=== PATIENT | male | born 1980 | race Caucasian/White ===

== ENCOUNTER 2016-12-01 01:27 | Emergency (ER) | payer OTHER ==
[~2016-12-01] VITALS: Ht 177.8 cm; Wt 70.0 kg
[~2016-12-01 01:27] MED LIST: FLUO20CA4 PO
[2016-12-01 01:35] VITALS: BP 138/96; PULSE 94; RESP 18; TEMP 98.5; O2SAT 97
[2016-12-01 02:00] LABS: AUTOMATED NEUTROPHIL # 3.4 TH/MM3 (1.8-7.7); BASOPHIL % 0.5 % (0.0-2.0); EOSINOPHIL # 0.1 TH/MM3 (0-0.4); EOSINOPHIL % 1.4 % (0.0-4.0); HEMATOCRIT 40.7 % (39.0-51.0); HEMO FLAGS DIFF FINAL; LYMPH % 34.6 % (9.0-44.0); LYMPHOCYTE # 2.2 TH/MM3 (1.0-4.8); MEAN CELL VOLUME 98.2 FL (80.0-100.0); MEAN CORPUSCULAR HEMOGLOBIN 34.4 PG (27.0-34.0); MEAN CORPUSCULAR HGB CONC 35.1 % (32.0-36.0); MONO % 10.6 % (0.0-8.0); NEUT % 52.9 % (16.0-70.0); PLATELET COUNT 218 TH/MM3 (150-450); RED BLOOD COUNT 4.14 MIL/MM3 (4.50-5.90); RED CELL DISTRIBUTION WIDTH 12.4 % (11.6-17.2); WHITE BLOOD COUNT 6.4 TH/MM3 (4.0-11.0)
[2016-12-01 02:11] LABS: BICARBONATE 23.8 MEQ/L (21.0-32.0); POTASSIUM 3.8 MEQ/L (3.5-5.1)
--- NOTE | 2016-12-01 02:39 | PD ---
HPI Chief Complaint: Psychiatric Symptoms Time Seen by Provider: 02:39 Travel History International Travel<30 days: No Contact w/Intl Traveler<30days: No Traveled to known affect area: No History of Present Illness HPI 36-year-old male is brought to the emergency department under Mackenzie act for psychiatric evaluation. Patient allegedly states that he wants to hurt himself. Patient states that he is "crazy" and needs help. Patient reports heavy alcohol consumption. Denies any other acute medically this time. PFSH Past Medical History Anxiety: Yes Depression: Yes Cancer: No Cardiovascular Problems: No Endocrine: No Genitourinary: No Musculoskeletal: No Neurologic: No Psychiatric: No Reproductive: No Respiratory: No Past Surgical History Abdominal Surgery: No Cardiac Surgery: No Ear Surgery: No Endocrine Surgery: No Eye Surgery: No Genitourinary Surgery: No Gynecologic Surgery: No Oral Surgery: Yes Thoracic Surgery: No Other Surgery: Yes Social History Alcohol Use: Yes Tobacco Use: No Substance Use: Yes (NUMEROUS. SEE EMR ) Allergies-Medications (Allergen,Severity, Reaction): Coded Allergies: Penicillin (Verified Allergy, Severe, Anaphylaxis, 12/01/16) Haldol (Verified Adverse Reaction, Unknown, EPS, 12/01/16) Dystonia Reported Meds & Prescriptions Reported Meds & Active Scripts Active No Active Prescriptions or Reported Medications Review of Systems ROS Limitations: Intoxication Except as stated in HPI: all other systems reviewed are Neg Physical Exam Exam Limitations: Intoxication Narrative GENERAL: Well-nourished male patient, in no acute distress SKIN: Focused skin assessment warm/dry. I can see that the left fifth digit is erythematous and moderately edematous. However the patient will not allow me to touch the finger or assessment at this time.. HEAD: Atraumatic. Normocephalic. EYES: Pupils equal and round. No scleral icterus. No injection or drainage. ENT: No nasal bleeding or discharge. Mucous membranes pink and moist. NECK: Trachea midline. No JVD. CARDIOVASCULAR: Regular rate and rhythm. No murmur appreciated. RESPIRATORY: No accessory muscle use. Clear to auscultation. Breath sounds equal bilaterally. GASTROINTESTINAL: Abdomen soft, non-tender, nondistended. Hepatic and splenic margins not palpable. MUSCULOSKELETAL: No obvious deformities. No clubbing. No cyanosis. NEUROLOGICAL: Awake and alert. No obvious cranial nerve deficits. Motor grossly within normal limits. Normal speech. Data Data Last Documented VS Vital Signs Date Time Temp Pulse Resp B/P Pulse Ox O2 Delivery O2 Flow Rate FiO2 12/01/16 01:35 98.5 94 18 138/96 97 Orders Complete Blood Count With Diff (12/01/16 01:33) Basic Metabolic Panel (Bmp) (12/01/16 01:33) Psych Screen (12/01/16 01:33) Drug Screen, Random Urine (12/01/16 01:33) Alcohol (Ethanol) (12/01/16 01:33) Lorazepam Inj (Ativan Inj) (12/01/16 03:45) Sulfamet-Trimeth Ds 800-160 Mg (Bactrim (12/01/16 09:00) Cephalexin (Keflex) (12/01/16 06:00) Labs Laboratory Tests Test 12/01/16 01:50 White Blood Count 6.4 TH/MM3 Red Blood Count 4.14 MIL/MM3 Hemoglobin 14.3 GM/DL Hematocrit 40.7 % Mean Corpuscular Volume 98.2 FL Mean Corpuscular Hemoglobin 34.4 PG Mean Corpuscular Hemoglobin 35.1 % Concent Red Cell Distribution Width 12.4 % Platelet Count 218 TH/MM3 Mean Platelet Volume 7.6 FL Neutrophils (%) (Auto) 52.9 % Lymphocytes (%) (Auto) 34.6 % Monocytes (%) (Auto) 10.6 % Eosinophils (%) (Auto) 1.4 % Basophils (%) (Auto) 0.5 % Neutrophils # (Auto) 3.4 TH/MM3 Lymphocytes # (Auto) 2.2 TH/MM3 Monocytes # (Auto) 0.7 TH/MM3 Eosinophils # (Auto) 0.1 TH/MM3 Basophils # (Auto) 0.0 TH/MM3 CBC Comment DIFF FINAL Differential Comment Sodium Level 139 MEQ/L Potassium Level 3.8 MEQ/L Chloride Level 104 MEQ/L Carbon Dioxide Level 23.8 MEQ/L Anion Gap 11 MEQ/L Blood Urea Nitrogen 8 MG/DL Creatinine 0.75 MG/DL Estimat Glomerular Filtration 119 ML/MIN Rate Random Glucose 78 MG/DL Calcium Level 8.6 MG/DL Ethyl Alcohol Level 282 MG/DL MDM Medical Decision Making Medical Screen Exam Complete: Yes Emergency Medical Condition: Yes Medical Record Reviewed: Yes Differential Diagnosis Mood disorder versus personality disorder versus substance abuse versus intoxication Narrative Course 36-year-old male presents to emergency department for evaluation. Patient appears without distress. He does appear clinically intoxicated and states that he needs help. CBC and BMP is without acute concern.. EtOH is 282. Patient is medically cleared to undergo psychiatric screening for further evaluation and disposition. Mental health screening discussed with the patient. Psychiatric screen ordered. Patient does have an erythematous left fifth digit however exam is limited due to patient not cooperating.. Appears to be cellulitic associated with a small abrasion. Patient was started on oral antibiotics. Upon discharge, he will need prescription written for him. Diagnosis Primary Impression: Drug-induced mood disorder Additional Impression: Cellulitis of left little finger Scripts No Active Prescriptions or Reported Meds Condition: Stable Gladys Garces December 01, 2016 02:39
[2016-12-01] MEDS ORDERED: LORazepam 2 MG/ML VIAL IM ONE (03:45)
[2016-12-01] MEDS ORDERED: CEPHALEXIN MONOHYDRATE 500 MG CAP PO SCH (06:00)
[2016-12-01 07:15] VITALS: BP 125/80; PULSE 90; RESP 18; O2SAT 98
[2016-12-01] MEDS ORDERED: SULFAMETHOXAZOLE-TRIMETHOPRIM DS 800-160 MG TAB PO SCH (09:00)
--- NOTE | 2016-12-01 10:28 | PD ---
History of Present Illness Chief Complaint: Psychiatric Symptoms Time Seen by Provider: 10:15 Travel History International Travel<30 Days: No Contact w/Intl Traveler<30days: No Known affected area: No Legal Status Legal Status: Mackenzie Act [place] Act Signed By: [facility] [employer]. History of Present Illness: History of Present Illness HPI 36-year-old male with history of mood disorder, nos as well as substance use disorder who is brought to the emergency department under Mackenzie act initiated by [facility]ILL for psychiatric evaluation. As per the report the police made contact with the patient who was intoxicated and appeared in emotional distress. Reports not feeling right in the head and he was contemplating jumping from a bridge. He also expressed he wanted to stab himself in the leg. Patient presented with BAL of 282. Positive toxicology for cannabinoids. EMR is reviewed. Patient was [facility] [place] [facility] 2016 for treatment of mood disorder in context of acute substance intoxication. He has not followed up with treatment recommendations upon his discharge. Patient is alert, oriented, calm and cooperative. Speech is clear and logical. He states " I said what I said and I might have exaggerated some to get here and not go to [facility]". I am not suicidal and I am not homicidal. I am getting my son back and I want to be there for him". Patient with no psychosis and no santos. he acknowledges that his consumption of alcohol contributed to current BA. [facility] Past Medical History Anxiety: Yes Depression: Yes Cancer: No Cardiovascular Problems: No Endocrine: No Genitourinary: No Musculoskeletal: No Neurologic: No Psychiatric: No Reproductive: No Respiratory: No Past Surgical History Abdominal Surgery: No Cardiac Surgery: No Ear Surgery: No Endocrine Surgery: No Eye Surgery: No Genitourinary Surgery: No Gynecologic Surgery: No Oral Surgery: Yes Thoracic Surgery: No Other Surgery: Yes Psychiatric History Psychiatric History Hx Psychiatric Treatment: Hx of depression and anxiety. Past inpatient admission for unspecified mood disorder 2015. Plans on beg treatmetn with a psychiatrist once released History of Inpatient Treatment: Yes Guns or firearms in home: No Social History Single male. Lives with his family. Describes himself as a cowboy. Has a 13 year old son Hx Alcohol Use: Yes Hx Tobacco Use: No Hx Substance Use: Yes Substance Use Type: Alcohol, Marijuana, Amphetamines-Stimulants, Prescription Medications, Cocaine, Synth Opiates-Pain Pills Other Substances Used: I drink as much as i can. ill take anything i can get my hands on Hx of Substance Use Treatment: Yes Family Psychiatric History Negative Allergies-Medications (Allergen,Severity, Reaction): Coded Allergies: Penicillin (Verified Allergy, Severe, Anaphylaxis, 12/01/16) Haldol (Verified Adverse Reaction, Unknown, EPS, 12/01/16) Dystonia Reported Meds & Prescriptions Reported Meds & Active Scripts Active No Active Prescriptions or Reported Medications Review of Systems Except as stated in HPI: all other systems reviewed are Neg Exam Alert: Yes [place]: Person (ox4) Mood: Calm Affect: Appropriate Speech: Clear, Logical Eye Contact: Normal Memory Intact: Comment (no impairmetn) Hallucinations: Other (negative) Delusions: No Suicidal: Ideation (denies any) Homicidal: Ideation (deneis any) Insight/Judgement Poor. Not impaired. MDM Medical Decision Making Medical Record Reviewed: Yes Assessment/Plan 36 year old male who in context of acute alcohol intoxication reported suicidal ideation. At this point he is denying any suicidal or homicidal ideation, intent or plan. Does not meet BA criteria. Denies any suicidal or homicidal ideation. Recommend abstinence. Cleared for discharge once safe to do so. Orders Complete Blood Count With Diff (12/01/16 01:33) Basic Metabolic Panel (Bmp) (12/01/16 01:33) Psych Screen (12/01/16 01:33) Drug Screen, Random Urine (12/01/16 01:33) Alcohol (Ethanol) (12/01/16 01:33) Lorazepam Inj (Ativan Inj) (12/01/16 03:45) Sulfamet-Trimeth Ds 800-160 Mg (Bactrim (12/01/16 09:00) Cephalexin (Keflex) (12/01/16 06:00) Diet Regular Basic (12/01/16 Breakfast) Results Vital Signs Date Time Temp Pulse Resp B/P Pulse Ox O2 Delivery O2 Flow Rate FiO2 12/01/16 07:15 90 18 125/80 98 Room Air 12/01/16 01:35 98.5 94 18 138/96 97 Laboratory Tests Test 12/01/16 01:50 White Blood Count 6.4 Red Blood Count 4.14 Hemoglobin 14.3 Hematocrit 40.7 Mean Corpuscular Volume 98.2 Mean Corpuscular Hemoglobin 34.4 Mean Corpuscular Hemoglobin 35.1 Concent Red Cell Distribution Width 12.4 Platelet Count 218 Mean Platelet Volume 7.6 Neutrophils (%) (Auto) 52.9 Lymphocytes (%) (Auto) 34.6 Monocytes (%) (Auto) 10.6 Eosinophils (%) (Auto) 1.4 Basophils (%) (Auto) 0.5 Neutrophils # (Auto) 3.4 Lymphocytes # (Auto) 2.2 Monocytes # (Auto) 0.7 Eosinophils # (Auto) 0.1 Basophils # (Auto) 0.0 CBC Comment DIFF FINAL Differential Comment Sodium Level 139 Potassium Level 3.8 Chloride Level 104 Carbon Dioxide Level 23.8 Anion Gap 11 Blood Urea Nitrogen 8 Creatinine 0.75 Estimat Glomerular Filtration 119 Rate Random Glucose 78 Calcium Level 8.6 Ethyl Alcohol Level 282 Diagnosis Primary Impression: Drug-induced mood disorder Additional Impression: Cellulitis of left little finger Psychiatrically Cleared: Yes Med/ Other Pt Specific Info: No Meds Exist/No RX given Prescriptions Sulfamethoxazole-Trimethoprim (Bactrim DS)800-160 Mg Tab1 Tab PO BID #20 TAB Ref 0 Prov:Randa Mei MD 12/01/16 Disposition: 01 DISCHARGE HOME Condition: Stable Problem Qualifiers Brie Hernandez December 01, 2016 10:28
[2016-12-01] MEDS ORDERED: BACT800T5 PO (10:39)
--- NOTE | 2016-12-01 10:39 | PD ---
Physical Exam Date Seen by Provider: December 01, 2016 Time Seen by Provider: 10:38 Narrative Patient was cleared by psych to be discharged home. However I was told by the nurse that during his medical assessment earlier when he had first come in they had found some cellulitis of his finger. He was given antibiotic to take while he was waiting for the psych consultation. However he does not have a prescription to go home with. I will include a prescription of Bactrim. Data Data Last Documented VS Vital Signs Date Time Temp Pulse Resp B/P Pulse Ox O2 Delivery O2 Flow Rate FiO2 12/01/16 07:15 90 18 125/80 98 Room Air 12/01/16 01:35 98.5 Orders Complete Blood Count With Diff (12/01/16 01:33) Basic Metabolic Panel (Bmp) (12/01/16 01:33) Psych Screen (12/01/16 01:33) Drug Screen, Random Urine (12/01/16 01:33) Alcohol (Ethanol) (12/01/16 01:33) Lorazepam Inj (Ativan Inj) (12/01/16 03:45) Sulfamet-Trimeth Ds 800-160 Mg (Bactrim (12/01/16 09:00) Cephalexin (Keflex) (12/01/16 06:00) Diet Regular Basic (12/01/16 Breakfast) Labs Laboratory Tests Test 12/01/16 12/01/16 01:50 10:29 White Blood Count 6.4 TH/MM3 Red Blood Count 4.14 MIL/MM3 Hemoglobin 14.3 GM/DL Hematocrit 40.7 % Mean Corpuscular Volume 98.2 FL Mean Corpuscular Hemoglobin 34.4 PG Mean Corpuscular Hemoglobin 35.1 % Concent Red Cell Distribution Width 12.4 % Platelet Count 218 TH/MM3 Mean Platelet Volume 7.6 FL Neutrophils (%) (Auto) 52.9 % Lymphocytes (%) (Auto) 34.6 % Monocytes (%) (Auto) 10.6 % Eosinophils (%) (Auto) 1.4 % Basophils (%) (Auto) 0.5 % Neutrophils # (Auto) 3.4 TH/MM3 Lymphocytes # (Auto) 2.2 TH/MM3 Monocytes # (Auto) 0.7 TH/MM3 Eosinophils # (Auto) 0.1 TH/MM3 Basophils # (Auto) 0.0 TH/MM3 CBC Comment DIFF FINAL Differential Comment Sodium Level 139 MEQ/L Potassium Level 3.8 MEQ/L Chloride Level 104 MEQ/L Carbon Dioxide Level 23.8 MEQ/L Anion Gap 11 MEQ/L Blood Urea Nitrogen 8 MG/DL Creatinine 0.75 MG/DL Estimat Glomerular Filtration 119 ML/MIN Rate Random Glucose 78 MG/DL Calcium Level 8.6 MG/DL Ethyl Alcohol Level 282 MG/DL Urine Opiates Screen NEG Urine Barbiturates Screen NEG Urine Amphetamines Screen NEG Urine Benzodiazepines Screen NEG Urine Cocaine Screen NEG Urine Cannabinoids Screen POS MDM Supervised Visit with BERNIE: No Diagnosis Primary Impression: Drug-induced mood disorder Additional Impression: Cellulitis of left little finger Med/Other Pt SpecificInfo: Prescription(s) given Scripts Sulfamethoxazole-Trimethoprim (Bactrim DS)800-160 Mg Tab1 Tab PO BID #20 TAB Ref 0 Prov:Randa Mei MD 12/01/16 Condition: Stable Randa Mei MD December 01, 2016 10:39
[2016-12-01 11:06] LABS: AMPHETAMINE, URINE NEG (NEG); BARBITURATES, URINE NEG (NEG); COCAINE, URINE NEG (NEG)
== END 2016-12-01 11:22 | disposition home or self-care (01) ==
LOC: NEPD 01:27
DX: F19.94 Other psychoactive substance use, unspecified with psychoactive substance-induced mood disorder (principal); L03.012 Cellulitis of left finger
CPT/HCPCS: 80048; 80307; 85025; 96372; 99283; J2060